=== PATIENT | female | born 2000 | race Two or more races ===

== ENCOUNTER 2019-05-19 16:04 | Emergency (ER) | payer OTHER ==
[~2019-05-19] VITALS: Ht 167.6 cm; Wt 63.5 kg
--- NOTE | 2019-05-19 16:55 | PHYS DOC ---
Past History Past Medical History: Other Additional Past Medical Histor: miscarriage (ALLAN BABCOCK DO) Smoking: Non-smoker Alcohol Use: None Drug Use: None (ALLAN BABCOCK DO) Adult General Chief Complaint Chief Complaint: WEAKNESS/GENERALIZED HPI HPI Patient is a 18-year-old female presents with feeling of weakness and shakiness for the past several days. She reports she is approximately 18 weeks . This is her third with one previous miscarriage as well as an ectopic previously. She denies any vaginal bleeding or discharge. Denies any dysuria or hematuria. Denies any back pain or flank pain. She has some chest discomfort that gets better with exertion. No radiation of the chest discomfort.[] (ALLAN BABCOCK DO) Review of Systems Review of Systems Constitutional: Denies fever or chills [] Eyes: Denies change in visual acuity, redness, or eye pain [] HENT: Denies nasal congestion or sore throat [] Respiratory: Denies cough or shortness of breath [] Cardiovascular: No additional information not addressed in HPI [] GI: Denies abdominal pain, nausea, vomiting, bloody stools or diarrhea [] : Denies dysuria or hematuria [] Musculoskeletal: Denies back pain or joint pain [] Integument: Denies rash or skin lesions [] Neurologic: Denies headache, focal weakness or sensory changes [] Endocrine: Denies polyuria or polydipsia [] All other systems were reviewed and found to be within normal limits, except as documented in this note. (ALLAN BABCOCK DO) Allergies Allergies Allergies Coded Allergies Type Severity Reaction Last Updated Verified No Known Drug Allergies 05/19/19 No (ALLAN BABCOCK DO) Physical Exam Physical Exam Constitutional: Well developed, well nourished, no acute distress, non-toxic appearance. [] HENT: Normocephalic, atraumatic, bilateral external ears normal, oropharynx moist, no oral exudates, nose normal. [] Eyes: PERRLA, EOMI, conjunctiva normal, no discharge. [] Neck: Normal range of motion, no tenderness, supple, no stridor. [] Cardiovascular:Heart rate regular rhythm, no murmur [] Lungs & Thorax: Bilateral breath sounds clear to auscultation [] Abdomen: Bowel sounds normal, soft, no tenderness, no masses, no pulsatile masses. [] Skin: Warm, dry, no erythema, no rash. [] Back: No tenderness, no CVA tenderness. [] Extremities: No tenderness, no cyanosis, no clubbing, ROM intact, no edema. [] Neurologic: Alert and oriented X 3, normal motor function, normal sensory function, no focal deficits noted. [] Psychologic: Affect normal, judgement normal, mood normal. [] ([facility]) Current Patient Data Vital Signs Vital Signs Date Time Temp Pulse Resp B/P (MAP) Pulse Ox O2 Delivery O2 Flow Rate FiO2 05/19/19 16:43 98.7 73 18 117/60 (79 99 Room Air ([facility]) EKG EKG EKG shows a sinus rhythm at 67 bpm, normal axis, QTC 423 ms, incomplete right bundle-branch block, no ST elevations. Interpreted by me at 1749.[] ([facility]) Radiology/Procedures Radiology/Procedures [] ([facility]) Radiology/[place] [address] IMAGING REPORT Signed PATIENT: RADHA ADAMS BACCOUNT: [id number] : 2000 LOCATION: ER AGE: 18 SEX: F EXAM STATUS: REG ER ORD. PHYSICIAN: ARSENIO CONNOR MD REASON: Elevated D-dimer, SOBreath, Gravid PROCEDURE: OB LIMITED Exam: Ultrasound OB limited Indication: Elevated d-dimer Technique: Real-time grayscale and color Doppler images of the pelvis were obtained by the department automatic buffing wheel former. Comparisons: None FINDINGS: Cervix measures 3.7 cm in length. Placenta is anterior in position and appears normal. There is a single live intrauterine gestation with heart rate measured at 153 bpm. measurements as follows: BPD: 4.1 cm corresponding to 18 weeks 3 days Head circumference: 15.3 cm corresponding to 18 weeks 2 days Abdominal circumference: 12.5 cm corresponding to 18 weeks 1 day Femur length: 2.8 cm corresponding to 18 weeks 4 days Left ovary measures 3.0 x 2.0 x 2.1 cm. Right ovary is not visualized. IMPRESSION: 1. Single live intrauterine gestation with gestational age measured at 18 weeks 3 days. Correlate with LMP. Dedicated survey is recommended in the nonemergent setting. 2. Normal appearance the placenta. 3. Cervix is long and closed. Electronically signed by: Lluvia Luna MD (05/19/2019 8:38 PM) [facility] DICTATED AND SIGNED BY: LLUVIA LUNA MD DATE: 05/19/192037 CC: ARSENIO CONNOR MD; PCP,UNKNOWN ~ [address] [address] IMAGING REPORT Signed PATIENT: RADHA ADAMSCOUNT: [id number] : 2000 LOCATION: ER AGE: 18 SEX: F EXAM STATUS: REG ER ORD. PHYSICIAN: ARSENIO CONNOR MD REASON: Elevated D-dimer, SOBreath, Gravid PROCEDURE: VENOUS LOWER EXT BILATERAL Examination: Bilateral Lower Extremity Venous Doppler Ultrasound History: Elevated d-dimer, shortness of breath Comparison: None Procedure: Hernandez scale, color flow 2D and spectal waveform analysis images are obtained with and without compression in the area of the common femoral vein, superficial femoral vein - femoral vein junction, main femoral vein (superficial femoral vein) and popliteal vein. Veins of the proximal calf are also imaged. Findings: There is normal duplex flow, color flow and compressibility of all visualized vein segments. No evidence of deep venous thrombus is present. Impression: No evidence of DVT in the bilateral lower extremity venous system. Electronically signed by: Cesar Harvey MD (05/19/2019 8:34 PM) [facility] DICTATED AND SIGNED BY: CESAR HARVEY MD DATE: 05/19/192033 CC: ARSENIO CONNOR MD; PCP,UNKNOWN ~ [address] [address] IMAGING REPORT Signed PATIENT: RADHA ADAMSCOUNT: [id number] : 2000 LOCATION: ER AGE: 18 SEX: F EXAM STATUS: REG ER ORD. PHYSICIAN: ARSENIO CONNOR MD REASON: Omni 350,90ml IV.Dyspnea,elevated d-dimer.18wks ,shielded PROCEDURE: CT ANGIOGRAPHY CHEST Exam: CT of chest with contrast INDICATION: Dyspnea, elevated d-dimer TECHNIQUE: Sequential axial images through the chest obtained following the administration of 90 mL of Omni 350 IV contrast. Sagittal and coronal reformatted images were reconstructed from the axial data and reviewed. 3-D reformatted images were reconstructed from the axial data and reviewed. Comparisons: None FINDINGS: Visualized portions of the thyroid are unremarkable. No enlarged mediastinal lymph nodes. Heart size is normal. No pericardial effusion. Thoracic aorta has a normal course and caliber. Pulmonary artery is not enlarged. No pulmonary embolus is identified within the main, lobar or segmental pulmonary arteries. Airways are patent. No consolidation or pneumothorax. No suspicious lung nodules are identified. No pleural effusion or thickening. Visualized upper abdomen is unremarkable. No suspicious osseous lesions or acute fractures. IMPRESSION: No pulmonary embolus identified within the main, lobar or segmental pulmonary arteries. Exposure: One or more of the following in the visualized dose reduction techniques were utilized for this examination: 1. Automated exposure control 2. Adjustment of the MA and/or KV according to patient size 3. Use of iterative of reconstructive technique Electronically signed by: Lluvia Luna MD (05/19/2019 10:11 PM) [facility] DICTATED AND SIGNED BY: LLUVIA LUNA MD DATE: 05/19/19 2137 CC: ARSENIO CONNOR MD; PCP,UNKNOWN ~ (ARSENIO CONNOR MD) Course & Med Decision Making Course & Med Decision Making Pertinent Labs and Imaging studies reviewed. (See chart for details) ED course: Patient arrived, was placed in bed, and tolerated exam well. IV access was established, IV fluids were administered. heart tones were obtained in the 140s to 150s range. At the time of this dictation, laboratory studies are in progress. Patient care was endorsed to the nighttime physician.[] (ALLAN BABCOCK DO) Course & Med Decision Making Patient follow-up primary care. Patient return if any concerns. Keep follow up at [place]. Impression: 1. Weakness 2. Intrauterine [id number] weeks 3 days 3. Mild leukocytosis 13.2 4. Elevated d-dimer= 1.55 5. BHCG 27,467 6. Blood Type O + (ARSENIO CONNOR MD) Dragon Disclaimer Dragon Disclaimer This electronic medical record was generated, in whole or in part, using a voice recognition dictation system. (ALLAN BABCOCK DO) Dragon Disclaimer d (ARSENIO CONNOR MD) Departure Departure: Disposition: 01 HOME/RESIDENCE PRIOR TO ADM Condition: STABLE Referrals: PCP,UNKNOWN (PCP) Scripts Cephalexin (KEFLEX) 500 Mg Capsule 500 MG PO TID for uti for 7 Days, BOTTLE Prov: ARSENIO CONNOR MD 05/19/19 Gabriel Disclaimer This chart was dictated in whole or in part using Voice Recognition software in a busy, high-work load, and often noisy Emergency Department environment. It may contain unintended and wholly unrecognized errors or omissions. (ARSENIO CONNOR MD) ALLAN BABCOCK DO May 19, 2019 16:55 ARSENIO CONNOR MD May 19, 2019 21:11
[2019-05-19] MEDS ORDERED: IV NORMAL SALINE 1,000ML 1,000 ML IV ONE (17:00)
[2019-05-19 17:21] LABS: BASO # 0.1 x10^3/uL (0.0-0.2); BASO % 1 % (0-3); EOS # 0.1 x10^3/uL (0.0-0.7); EOS % 1 % (0-3); HEMATOCRIT 38.5 % (36.0-47.0); HEMOGLOBIN 12.9 g/dL (12.0-15.5); LYMPH # 2.2 x10^3/uL (1.0-4.8); LYMPH % 17 % (24-48); MEAN CORPUSCULAR HEMOGLOBIN 30 pg (25-35); MEAN CORPUSCULAR HGB CONC 33 g/dL (31-37); MEAN CORPUSCULAR VOLUME 89 fL (79-100); MONO # 0.7 x10^3/uL (0.0-1.1); MONO % 5 % (0-9); NEUT # 10.1 x10^3uL (1.8-7.7); NEUT % 76 % (31-73); PLATELET COUNT 234 x10^3/uL (140-400); RED BLOOD COUNT 4.35 x10^6/uL (3.50-5.40); RED CELL DISTRIBUTION WIDTH 13.9 % (11.5-14.5); WHITE BLOOD COUNT 13.2 x10^3/uL (4.0-11.0)
[2019-05-19 17:41] LABS: ALBUMIN 2.9 g/dL (3.4-5.0); ALBUMIN/GLOBULIN RATIO 0.7 (1.0-1.7); CALCIUM 8.6 mg/dL (8.5-10.1); CREATININE 0.6 mg/dL (0.6-1.0); GFR 128.8; POTASSIUM 3.9 mmol/L (3.5-5.1); TOTAL PROTEIN 7.2 g/dL (6.4-8.2)
[2019-05-19] MEDS ORDERED: ENOXAPARIN ** NOTE DOSE ** SYRINGE SQ ONE (18:00)
[2019-05-19] MEDS ORDERED: IV RINGERS SOLUTION,LACTATED 1,000 ML IV ONE (18:45)
--- NOTE | 2019-05-19 20:37 | RAD ---
Examination: Bilateral Lower Extremity Venous Doppler Ultrasound History: Elevated d-dimer, shortness of breath Comparison: None Procedure: Hernandez scale, color flow 2D and spectal waveform analysis images are obtained with and without compression in the area of the common femoral vein, superficial femoral vein - femoral vein junction, main femoral vein (superficial femoral vein) and popliteal vein. Veins of the proximal calf are also imaged. Findings: There is normal duplex flow, color flow and compressibility of all visualized vein segments. No evidence of deep venous thrombus is present. Impression: No evidence of DVT in the bilateral lower extremity venous system. Electronically signed by: Cesar Harvey MD (05/19/2019 8:34 PM) [facility]
--- NOTE | 2019-05-19 20:40 | RAD ---
Exam: Ultrasound OB limited Indication: Elevated d-dimer Technique: Real-time grayscale and color Doppler images of the pelvis were obtained by the department threshing machine operator. Comparisons: None FINDINGS: Cervix measures 3.7 cm in length. Placenta is anterior in position and appears normal. There is a single live intrauterine gestation with heart rate measured at 153 bpm. measurements as follows: BPD: 4.1 cm corresponding to 18 weeks 3 days Head circumference: 15.3 cm corresponding to 18 weeks 2 days Abdominal circumference: 12.5 cm corresponding to 18 weeks 1 day Femur length: 2.8 cm corresponding to 18 weeks 4 days Left ovary measures 3.0 x 2.0 x 2.1 cm. Right ovary is not visualized. IMPRESSION: 1. Single live intrauterine gestation with gestational age measured at 18 weeks 3 days. Correlate with LMP. Dedicated survey is recommended in the nonemergent setting. 2. Normal appearance the placenta. 3. Cervix is long and closed. Electronically signed by: Lluvia Nelson MD (05/19/2019 8:38 PM) [facility]
[2019-05-19] MEDS ORDERED: IOHEXOL 350 MG/ML 100 ML VIAL. IV ONE (21:00)
[2019-05-19 21:09] LABS: BACTERIA,URINE FEW /HPF (0-FEW); BILIRUBIN,URINE NEG (NEG); CLARITY,URINE CLEAR; COLOR,URINE YELLOW; GLUCOSE,URINE NEG (NEG); NITRITE,URINE NEG (NEG); RBC,URINE 0 /HPF (0-2); UROBILINOGEN,URINE 0.2 mg/dL (0.2 mg/dL)
[2019-05-19 21:10] LABS: SQUAMOUS EPITHELIAL CELL,UR OCC /LPF
--- NOTE | 2019-05-19 22:14 | RAD ---
Exam: CT of chest with contrast INDICATION: Dyspnea, elevated d-dimer TECHNIQUE: Sequential axial images through the chest obtained following the administration of 90 mL of Omni 350 IV contrast. Sagittal and coronal reformatted images were reconstructed from the axial data and reviewed. 3-D reformatted images were reconstructed from the axial data and reviewed. Comparisons: None FINDINGS: Visualized portions of the thyroid are unremarkable. No enlarged mediastinal lymph nodes. Heart size is normal. No pericardial effusion. Thoracic aorta has a normal course and caliber. Pulmonary artery is not enlarged. No pulmonary embolus is identified within the main, lobar or segmental pulmonary arteries. Airways are patent. No consolidation or pneumothorax. No suspicious lung nodules are identified. No pleural effusion or thickening. Visualized upper abdomen is unremarkable. No suspicious osseous lesions or acute fractures. IMPRESSION: No pulmonary embolus identified within the main, lobar or segmental pulmonary arteries. Exposure: One or more of the following in the visualized dose reduction techniques were utilized for this examination: 1. Automated exposure control 2. Adjustment of the MA and/or KV according to patient size 3. Use of iterative of reconstructive technique Electronically signed by: Lluvia Nelson MD (05/19/2019 10:11 PM) [facility]
[2019-05-19] MEDS ORDERED: ALBUTEROL SULFATE 8GM INHALER. INH ONE (22:45)
[2019-05-19] MEDS ORDERED: CEPHALEXIN 250 MG CAPSULE PO ONE (22:45)
[2019-05-19] MEDS ORDERED: CEPH-264 PO (22:52)
[2019-05-19 23:17] VITALS: BP 117/70
== END 2019-05-19 23:17 | disposition home or self-care (01) ==
LOC: ER 16:04
DX: O99.112 Other diseases of the blood and blood-forming organs and certain disorders involving the immune mechanism complicating pregnancy, second trimester (principal); R53.1 Weakness; D72.829 Elevated white blood cell count, unspecified; R79.1 Abnormal coagulation profile; Z3A.18 18 weeks gestation of pregnancy
CPT/HCPCS: 36415; 71275; 76815; 80053; 81001; 83880; 84484; 84702; 85025; 85379; 87086; 93970; 94640; 96372; 99285; J1650; J7120; J7613; Q9967; 94664; J7030

== ENCOUNTER 2019-07-10 19:32 | Emergency (ER) | payer OTHER ==
[~2019-07-10] VITALS: Ht 167.6 cm; Wt 63.5 kg
[~2019-07-10 19:32] MED LIST: CEPH-264 PO
[2019-07-10 19:40] VITALS: BP 122/73
--- NOTE | 2019-07-10 19:40 | PHYS DOC ---
Past History Past Medical History: Other Additional Past Medical Histor: miscarriage Past Surgical History: No Surgical History Smoking: Non-smoker Alcohol Use: None Drug Use: None Adult General Chief Complaint Chief Complaint: COUGH.. " I ve been sick at least four days... coughing, runny nose... sore throat.. but I am 25 wk 5 day .... this is my third.. I had one ectopic, tx with methotrexate and 1 miscarriage.. at 11 weeks.. but this preg. 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 . Pt. did not get a flu vaccination this season. Patient denies any specific ill contacts. Patient denies any travel. Is taking vitamin. No history of vaginal discharge or bleeding. No history of abdomen pain. Patient is normally healthy. No history immunosuppression. Ultrasounds have been normal. Review of Systems Review of Systems Constitutional: Subjective history of fever Eyes: Denies change in visual acuity, redness, or eye pain [] HENT: Complaints of nasal congestion, postnasal drainage and sore throat [] Respiratory: Denies cough or shortness of breath [] Cardiovascular: No additional information not addressed in HPI [] GI: Denies abdominal pain, nausea, vomiting, bloody stools or diarrhea . Patient is []gravid : Denies dysuria or hematuria [] Musculoskeletal: Denies back pain or joint pain [] Integument: Denies rash or skin lesions [] Neurologic: Denies headache, focal weakness or sensory changes [] Endocrine: Denies polyuria or polydipsia [] All other systems were reviewed and found to be within normal limits, except as documented in this note. Family History Family History Noncontributory Current Medications Current Medications See nursing for home meds Allergies Allergies Allergies Coded Allergies Type Severity Reaction Last Updated Verified No Known Drug Allergies 05/19/19 No Physical Exam Physical Exam Constitutional: Well developed, well nourished, mild distress, non-toxic appearance. [] HENT: Normocephalic, atraumatic, bilateral external ears normal, oropharynx moist, postnasal drainage and erythema, no oral exudates, nose swollen turbinates and clear rhinorrhea Eyes: PERRLA, EOMI, conjunctiva normal, no discharge. [] Neck: Normal range of motion, no tenderness, supple, no stridor. [] Cardiovascular:Heart rate regular rhythm, no murmur [] Lungs & Thorax: Bilateral breath sounds equal at apex auscultation [] Abdomen: Bowel sounds normal, soft, no tenderness, no masses, no pulsatile masses. [] Gravid. Skin: Warm, dry, no erythema, no rash. [] Back: No tenderness, no CVA tenderness. [] Extremities: No tenderness, no cyanosis, no clubbing, ROM intact, no edema. [] No cording noted. Neurologic: Alert and oriented X 3, normal motor function, normal sensory function, no focal deficits noted. []DTR +2 patella and brachial Psychologic: Affect anxious, judgement normal, mood normal. [] EKG EKG [] Radiology/Procedures Radiology/Procedures [] Course & Med Decision Making Course & Med Decision Making Pertinent Labs and Imaging studies reviewed. (See chart for details) Patient to take Benadryl 25 mg up to 4 times a day for severe congestion and drainage. Take only Tylenol for discomfort. Follow-up primary care. Return if any concerns. To notify IP [place] of influenza B infection. Recheck urine on follow up with account installer. Impression: 1. Influ. B + 2. Viral syndrome [] Dragon Disclaimer Dragon Disclaimer This electronic medical record was generated, in whole or in part, using a voice recognition dictation system. Departure Departure: Disposition: HOME/RESIDENCE PRIOR TO ADM Condition: STABLE Referrals: PCP,NO (PCP) Scripts Ondansetron Hcl (ZOFRAN) 8 Mg Tablet 4 MG PO QIDPRN PRN for active nausea and vomiting, #30 BOTTLE Prov: ARSENIO CONNOR MD 07/10/19 Gabriel Disclaimer This chart was dictated in whole or in part using Voice Recognition software in a busy, high-work load, and often noisy Emergency Department environment. It may contain unintended and wholly unrecognized errors or omissions. ARSENIO CONNOR MD Jul 10, 2019 19:40
[2019-07-10] MEDS ORDERED: predniSONE 10 MG TABLET PO ONE (19:45)
[2019-07-10] MEDS ORDERED: ALBUTEROL SULFATE 8GM INHALER. INH ONE ×2 (19:45→22:30)
[2019-07-10] MEDS ORDERED: diphenhydrAMINE ORAL ELIXIR 12.5 MG/5 ML ML PO ONE (20:00)
[2019-07-10] MEDS ORDERED: ACETAMINOPHEN 500 MG TABLET PO ONE (20:00)
[2019-07-10 21:05] LABS: INFLUENZA A PATIENT NEGATIVE (NEGATIVE); INFLUENZA B PATIENT POSITIVE (NEGATIVE)
[2019-07-10 21:16] LABS: AMPHETAMINE/METHAMPHETAMINE NEG (NEG); BARBITURATES NEG (NEG); BENZODIAZEPINES NEG (NEG); CANNABINOIDS NEG (NEG); COCAINE NEG (NEG); METHADONE NEG (NEG); OPIATES NEG (NEG); PHENCYCLIDINE NEG (NEG)
[2019-07-10] MEDS ORDERED: ONDA8TAB9 PO (22:15)
[2019-07-10 22:20] LABS: BILIRUBIN,URINE NEG (NEG); CLARITY,URINE CLEAR; COLOR,URINE YELLOW; GLUCOSE,URINE NEG (NEG)
[2019-07-10 22:21] LABS: BACTERIA,URINE 0 /HPF (0-FEW); NITRITE,URINE NEG (NEG); RBC,URINE RARE /HPF (0-2); SQUAMOUS EPITHELIAL CELL,UR OCC /LPF; UROBILINOGEN,URINE 0.2 mg/dL (0.2 mg/dL)
[2019-07-10 22:53] LABS: U PREG PATIENT POSITIVE (NEG)
== END 2019-07-10 22:20 | disposition home or self-care (01) ==
LOC: ER 19:32
DX: O99.512 Diseases of the respiratory system complicating pregnancy, second trimester (principal); J10.1 Influenza due to other identified influenza virus with other respiratory manifestations; B34.9 Viral infection, unspecified; Z3A.25 25 weeks gestation of pregnancy
CPT/HCPCS: 36415; 80307; 81001; 81025; 87070; 87086; 87804; 87880; 94640; 99284; J7512; J7613; 94664

== ENCOUNTER 2019-08-26 11:08 | Emergency (ER) | payer OTHER ==
[~2019-08-26] VITALS: Ht 160 cm; Wt 71.6 kg
[~2019-08-26 11:08] MED LIST changes: +ONDA8TAB9 PO
[2019-08-26] MEDS ORDERED: IV NORMAL SALINE 1,000ML 1,000 ML IV SCH (11:23)
--- NOTE | 2019-08-26 11:42 | PHYS DOC ---
Past History Past Medical History: No Pertinent History Additional Past Medical Histor: miscarriage Past Surgical History: No Surgical History Smoking: Non-smoker Alcohol Use: None Drug Use: None Adult General Chief Complaint Chief Complaint: ABDOMINAL PAIN IN [facility] HPI Patient is a 18-year-old female at 32 weeks' who presents with complaint of vaginal bleeding and cramping. Patient has had a miscarriage last August and had an ectopic in November of the previous year. Patient states that the cramping started at about 4:00 this morning. Her OB sees patients at [facility]. Patient states that the pain waxes and wanes and lasts anywhere from a few seconds to close to a minute. She states that the pain comes every few minutes. She states that when she had gone to the bathroom and wiped, she saw some blood mixed with mucus.[] Review of Systems Review of Systems Constitutional: Denies fever or chills [] Respiratory: Denies cough or shortness of breath [] Cardiovascular: No additional information not addressed in HPI [] GI: Complains of abdominal cramping without vomiting or diarrhea [] : Denies dysuria or hematuria. Complains of vaginal bleeding. [] Neurologic: Denies headache, focal weakness or sensory changes [] All other systems were reviewed and found to be within normal limits, except as documented in this note. Current Medications Current Medications Current Medications Medications (Trade) Dose Ordered Sig/Sheng Start Time Stop Time Status Last Admin Dose Admin Sodium Chloride 1,000 ml @ 1,000 mls/hr Q1H 08/26/19 11:23 08/26/19 12:22 Allergies Allergies Allergies Coded Allergies Type Severity Reaction Last Updated Verified No Known Drug Allergies 05/19/19 No Physical Exam Physical Exam Constitutional: Well developed, well nourished, no acute distress, non-toxic appearance. [] HENT: Normocephalic, atraumatic, bilateral external ears normal, oropharynx moist, no oral exudates, nose normal. [] Eyes: PERRLA, EOMI, conjunctiva normal, no discharge. [] Neck: Normal range of motion, no tenderness, supple, no stridor. [] Cardiovascular: Regular rate and rhythm[] Lungs & Thorax: Bilateral breath sounds clear to auscultation [] Abdomen: Bowel sounds normal, gravid. [] Skin: Warm, dry, no erythema, no rash. [] : Vaginal exam performed with nurse excellence manager present. Exam demonstrates effaced cervix that is closed at -2 station and ballotable. [] Extremities: No tenderness, no cyanosis, no clubbing, ROM intact. [] Neurologic: Alert and oriented X 3, no focal deficits noted. [] EKG EKG [] Radiology/Procedures Radiology/Procedures [] Course & Med Decision Making Course & Med Decision Making Pertinent Labs and Imaging studies reviewed. (See chart for details) Patient moved to room upon arrival was evaluated by your medical staff after which blood work was drawn an IV established. Patient has been given IV fluids. Despite IV fluids, patient continues to have pain that is described as contraction-like. Given that we have no OB monitoring at this facility, Dr. Dee at [facility] was contacted and he will accept patient in transfer to labor and delivery unit for further monitoring. Dragon Disclaimer Dragon Disclaimer This electronic medical record was generated, in whole or in part, using a voice recognition dictation system. Departure Departure: Impression: Primary Impression: Abdominal pain affecting Disposition: XFER SHT-TRM HOSP Condition: IMPROVED Referrals: PCP,NO (PCP) BRISEIDA RAMOS Jr. DO Aug 26, 2019 11:42
[2019-08-26 11:49] LABS: BASO % 0 % (0-3); EOS # 0.3 x10^3/uL (0.0-0.7); EOS % 2 % (0-3); HEMATOCRIT 29.4 % (36.0-47.0); HEMOGLOBIN 9.5 g/dL (12.0-15.5); LYMPH # 2.3 x10^3/uL (1.0-4.8); LYMPH % 16 % (24-48); MEAN CORPUSCULAR HEMOGLOBIN 27 pg (25-35); MEAN CORPUSCULAR HGB CONC 32 g/dL (31-37); MEAN CORPUSCULAR VOLUME 84 fL (79-100); MONO # 0.8 x10^3/uL (0.0-1.1); MONO % 6 % (0-9); NEUT # 10.3 x10^3uL (1.8-7.7); NEUT % 75 % (31-73); PLATELET COUNT 231 x10^3/uL (140-400); RED BLOOD COUNT 3.49 x10^6/uL (3.50-5.40); RED CELL DISTRIBUTION WIDTH 13.7 % (11.5-14.5); WHITE BLOOD COUNT 13.8 x10^3/uL (4.0-11.0)
[2019-08-26 11:56] LABS: CALCIUM 7.7 mg/dL (8.5-10.1); CREATININE 0.6 mg/dL (0.6-1.0); GFR 128.8; POTASSIUM 3.4 mmol/L (3.5-5.1)
[2019-08-26 12:03] LABS: ALBUMIN 2.2 g/dL (3.4-5.0); DIRECT BILIRUBIN 0.1 mg/dL (0.0-0.2); MAGNESIUM 1.5 mg/dL (1.8-2.4); TOTAL BILIRUBIN 0.4 mg/dL (0.2-1.0); TOTAL PROTEIN 6.3 g/dL (6.4-8.2)
[2019-08-26 12:20] LABS: CLARITY,URINE HAZY; COLOR,URINE YELLOW
[2019-08-26 12:21] LABS: BACTERIA,URINE 0 /HPF (0-FEW); BILIRUBIN,URINE NEG (NEG); GLUCOSE,URINE NEG (NEG); NITRITE,URINE NEG (NEG); SQUAMOUS EPITHELIAL CELL,UR MOD /LPF; UROBILINOGEN,URINE 0.2 mg/dL (0.2 mg/dL)
[2019-08-26 15:53] VITALS: BP 99/61
== END 2019-08-26 15:27 | disposition short-term general hospital (02) ==
LOC: ER 11:08
DX: O26.893 Other specified pregnancy related conditions, third trimester (principal); O46.93 Antepartum hemorrhage, unspecified, third trimester; R10.9 Unspecified abdominal pain; Z3A.32 32 weeks gestation of pregnancy
CPT/HCPCS: 36415; 80048; 80076; 81001; 83735; 85025; 87086; 99285-25; J7030